=== PATIENT | male | born 1950 | race Caucasian/White ===

== ENCOUNTER 2018-12-18 19:11 | Emergency (ER) | payer MEDICARE, OTHER, SELFPAY ==
[2018-12-18 19:11] VITALS: BP 165/94; PULSE 84; RESP 18; TEMP 36.6; O2SAT 98; BMI 28.5
--- NOTE | 2018-12-18 23:15 | ED.VISSUMM ---
- ER Visit Summary Date of Service: 12/18/18 Chief Complaint: Facial laceration History of Present Illness: The patient is a 68 M who stepped on a branch. The branch struck him left side of the face/left maxillary region. He states he was not knocked out. He is not amnestic. He denies headache. He is on no anticoagulant. He is on aspirin. He denies bleeding from his nose. He denies displacement of his teeth. He states he is able to open and close his mouth completely. He denies neck pain. He denies paresthesia, anesthesia motor expressly the time of the injury. He has no antibiotic allergy. Immunization for tetanus is unknown. Physical Examination: Patient has a curvilinear circular laceration of the left maxillary area. There is no septal deviation hematoma. There is no hyperesthesia the infra orbital nerve. There is no step-off of the infra orbital rim. There is no evidence of entrapment. Pupils equal round reactive paradoxic muscle intact. Is no clinical signs of basal skull fracture. Trachea is midline. There is no TMJ tenderness. Is no evidence of dental injury. There is no pain the patient cervical spine he has full active range of motion. Heart is regular. Lungs are clear to auscultation. No other injuries are noted. He is alert and oriented x3 with a GCS of 15. Test Results: None were obtained Emergency Department Course and Treatment: Tetanus immunization. Received first dose of Augmentin in the emergency department. Laceration was repaired by Dr. Amilcar Haque. Patient's wound was anesthetized with 1% lidocaine. The wound was copiously irrigated. A wooden foreign body was removed. Since patient is diabetic and there was retained foreign body will place on 5-day course of Augmentin. Treatment Plan: Prescription for Augmentin and wound check in 2 days. Sutures out 5 days. Disposition: Discharged home in stable improved condition Impression: 1. Facial laceration 2.5 cm 2. Removal of wooden foreign body 3. History of type 2 diabetes This note was generated with [employer] dictation software. It may contain incorrect words, spelling, and punctuation that were not noted in review of the chart prior to signing ED Disposition - Plan for ED Patient: Disposition: Home or Assisted Living Instructions: ED Laceration Facial Sutr Tape, ED Foreign Body Soft Tissue Prescriptions: Amox/Clavulanate Tablet [Augmentin Tablet] 875 mg PO Q12H #10 tab Referrals: Bassam Brito MD [Primary Care Provider] - 2 Days for wound check Additional Instructions: If you are unable to be seen by Dr. Bassam Brito 2 days for wound check please return to the emergency department for wound check. Sutures out in 5 days. Take antibiotics until gone.
[2018-12-19] MEDS: Diphth,Pertuss(Acell),Tet Vac 0.5 ML Vial IM (00:07)
--- NOTE | 2018-12-19 00:14 | ED.RN ---
see downtime documentation
== END 2018-12-19 00:14 | disposition home or self-care (01) ==
PROVIDERS: Emergency Provider Emergency Medicine; Family Provider Family Medicine; PCP Family Medicine
DX: S01.422A Laceration with foreign body of left cheek and temporomandibular area, initial encounter (principal); E11.9 Type 2 diabetes mellitus without complications; Z23 Encounter for immunization; Z79.84 Long term (current) use of oral hypoglycemic drugs; Z79.82 Long term (current) use of aspirin; W20.8XXA Other cause of strike by thrown, projected or falling object, initial encounter; Y93.01 Activity, walking, marching and hiking; Y92.89 Other specified places as the place of occurrence of the external cause; Y99.8 Other external cause status
CPT/HCPCS: 12011; 90715; 99281

== ENCOUNTER 2018-12-21 03:19 | Emergency (ER) | payer MEDICARE, OTHER, SELFPAY ==
[2018-12-21 03:20] VITALS: BP 143/82; PULSE 97; RESP 16; TEMP 36.8; O2SAT 98; BMI 27.3
--- NOTE | 2018-12-21 03:20 | ED.RN ---
RN CALLED FOR EKG, PULLED OLD EKGS FOR
--- NOTE | 2018-12-21 03:35 | EKG12_ITS ---
Test Reason : Blood Pressure : / mmHG Vent. Rate : 094 BPM Atrial Rate : 094 BPM P-R Int : 224 ms QRS Dur : 104 ms QT Int : 346 ms P-R-T Axes : 067 091 041 degrees QTc Int : 432 ms Sinus rhythm with 1st degree A-V block Possible Left atrial enlargement Rightward axis Borderline ECG Confirmed by CESAR FITCH, CHRISTEN ([id number]), technical writer and editor ANGELIQUE BERRY ([id number]) on 12/24/2018 1:12:26 PM Referred By: KIESHA Confirmed By:CHRISTEN GUERRERO MD
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
[2018-12-21] MEDS: Ketorolac 15 MG/ML Vial IV (03:39)
[2018-12-21 04:01] LABS: Absolute Lymphocyte Count 0.85 X10^3/ul (0.83-4.51); Absolute Neutrophil Count 3.8 X10^3/uL (2.0-7.7); Basophil# 0.02 X10^3/uL; Basophil% 0.4 % (0-1); Eosinophils% 3.7 % (0-5); Hematocrit 43.6 % (40-54); Hemoglobin 14.8 g/dl (13.0-16.5); Lymphocyte # 0.85 X10^3/ul (4.0); Lymphocyte % 15.7 % (19-41); Mean Corp Hgb Conc 33.9 g/gl (32-36); Mean Corpuscular Hgb 30.5 pg (27.0-32.0); Mean Corpuscular Volume 89.7 fL (80-94); Mean Platelet Vol. 9.7 fl (6.2-12.0); Monocyte# 0.54 X10^3/uL; Neutrophil # 3.79 X10^3/uL (2.7-7.7); Neutrophil % 70.2 % (47-70); POSITIVE COUNT NO; POSITIVE DIFFERENTIAL NO; POSITIVE MORPHOLOGY NO; Platelet Count 198 K/mm3 (150-450); RBC Distribution Width CV 12.6 % (11.6-14.6); RBC Distribution Width SD 41.2 fl (35.1-43.9); Red Blood Count 4.86 M/mm3 (4.6-6.2); White Blood Count 5.4 K/mm3 (4.4-11.0)
[2018-12-21 04:11] LABS: Anion Gap 10 (5-15); BUN 13 mg/dL (7-18); BUN/Creat Ratio 13.9 RATIO (10-20); Calcium,Total 8.6 mg/dL (8.5-10.1); Chloride 102 mmol/L (98-107); Creatinine, Serum 0.93 mg/dL (0.70-1.30); EST Glomerular Filtration Rate 85 mL/min (>60); Est Glom Filt Rate - Afr Amer 103 mL/min (>60); Estimated Creatinine Clearance 78.49 ml/min; Glucose 228 mg/dL (74-106); Potassium 4.1 mmol/L (3.5-5.1); Sodium Level 138 mmol/L (136-145)
--- NOTE | 2018-12-21 04:17 | ED.DEP ---
ED Disposition - Plan for ED Patient: Disposition: Home or Assisted Living Instructions: ED Palpitations Referrals: Bassam Brito MD [Primary Care Provider] -
[2018-12-21 04:32] VITALS: BP 135/80; PULSE 74; RESP 17; O2SAT 95
== END 2018-12-21 04:33 | disposition home or self-care (01) ==
PROVIDERS: Emergency Provider Emergency Medicine; Family Provider Family Medicine; PCP Family Medicine
DX: R00.2 Palpitations (principal); E11.9 Type 2 diabetes mellitus without complications; Z79.84 Long term (current) use of oral hypoglycemic drugs; Z79.82 Long term (current) use of aspirin; Z79.2 Long term (current) use of antibiotics; J34.89 Other specified disorders of nose and nasal sinuses
CPT/HCPCS: 70160; 70200; 80048; 84484; 85025; 93005; 96374; 99285; A4216

== ENCOUNTER → 2018-12-21 13:31 | Outpatient (CLI) | payer MEDICARE, OTHER, SELFPAY ==
[2018-12-21 03:20] VITALS: BMI 27.3
--- NOTE | 2018-12-21 13:36 | RAD_ITS ---
STUDY: X-RAY - ORBITS REASON FOR EXAM: Male, 68 years old. This study is being performed as a clearance examination for exclusion of orbital metal, prior to the performance of an MRI examination. TECHNIQUE: 5 view(s) of the orbits were obtained. COMPARISON: None. FINDINGS: Normal bilateral orbits without a metallic orbital foreign body. Normal visualized facial bones. Normal paranasal sinuses. The soft tissue structures are unremarkable. RAD/Orbits Min 4 Views IMPRESSION: No demonstrated metallic orbital foreign body. The patient is cleared for an MRI examination. Electronically Signed: Shahid De La Fuente, at 14:39 EST , Service support ,
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
== END ==
PROVIDERS: Family Provider Family Medicine; PCP Family Medicine; Referring Provider Family Medicine; Visit Provider Family Medicine
DX: J34.89 Other specified disorders of nose and nasal sinuses (principal)
CPT/HCPCS: 70160; 70200

== ENCOUNTER 2018-12-22 18:41 | Emergency (ER) | payer MEDICARE, OTHER, SELFPAY ==
[2018-12-21 03:20] VITALS: BMI 27.3
[2018-12-22 18:42] VITALS: BP 127/72; PULSE 89; RESP 16; TEMP 36.4; O2SAT 93; BMI 27.2
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
--- NOTE | 2018-12-22 20:19 | ED.DEP ---
ED Disposition - Plan for ED Patient: Instructions: ED Concussion, ED Fx Nasal Conf W X Ray, Facial Fracture Referrals: Bassam Brito MD [Primary Care Provider] - Darius Varghese MD [STAFF PHYSICIAN] - 5-7 Days
[2018-12-22 20:26] VITALS: PULSE 73; RESP 16; O2SAT 98
== END 2018-12-22 20:30 | disposition home or self-care (01) ==
LOC: ED 19:03
PROVIDERS: Emergency Provider Emergency Medicine; Family Provider Family Medicine; PCP Family Medicine
DX: S02.2XXD Fracture of nasal bones, subsequent encounter for fracture with routine healing (principal); S02.40DD Maxillary fracture, left side, subsequent encounter for fracture with routine healing; F07.81 Postconcussional syndrome; Z79.2 Long term (current) use of antibiotics; E11.9 Type 2 diabetes mellitus without complications; Z79.84 Long term (current) use of oral hypoglycemic drugs; Z79.82 Long term (current) use of aspirin; W20.8XXD Other cause of strike by thrown, projected or falling object, subsequent encounter
CPT/HCPCS: 70450; 99282

== ENCOUNTER 2019-02-14 14:00 | Outpatient (RCR) | payer MEDICARE, OTHER, SELFPAY ==
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
--- NOTE | 2019-02-14 14:50 | HP.PTCOM ---
PT Communication Note 02/14/[address] TAINA HERNANDEZ , Thank you for the referral of Rodrigo to [facility] for balance testing. I have enclosed a copy of the results for your review. In summation, he score very well on all tests with slight exceptions. Forward weight shift excursion was slightly at deficit. Also, some latency in response on Motor Control test in the anterior ankle muscles is present adn consistent with his neuropathy. Based on these results, I have taught him an appropriate HEP and how to wean back to normal activities and he feels he can do these at home vs. more therapy visits. i will f/u with him in 3 weeks to ensure progress. Please do not hesitate to call if there are questions or concerns. Sincerely, Piter Cadena DPT, OCS, CSCS Contact Information
--- NOTE | 2019-02-14 14:53 | HP.PTCOM_ITS ---
PT Communication Note 02/14/[address] TAINA HERNANDEZ , Thank you for the referral of Rodrigo to [facility] for balance testing. I have enclosed a copy of the results for your review. In summation, he score very well on all tests with slight exceptions. Forward weight shift excursion was slightly at deficit. Also, some latency in response on Motor Control test in the anterior ankle muscles is present adn consistent with his neuropathy. Based on these results, I have taught him an appropriate HEP and how to wean back to normal activities and he feels he can do these at home vs. more therapy visits. i will f/u with him in 3 weeks to ensure progress. Please do not hesitate to call if there are questions or concerns. Sincerely, Piter Cadena DPT, OCS, CSCS Contact Information
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
== END 2019-02-14 19:00 | disposition home or self-care (01) ==
LOC: PT 14:00
PROVIDERS: Family Provider Family Medicine; PCP Family Medicine
DX: R26.2 Difficulty in walking, not elsewhere classified (principal)
CPT/HCPCS: 97162; 97165; 97166; 97750

== ENCOUNTER → 2019-07-29 | Outpatient (CLI) | payer MEDICARE, OTHER, SELFPAY ==
[2019-07-29 12:52] LABS: Anion Gap 9 (5-15); BUN 14 mg/dL (7-18); BUN/Creat Ratio 14.4 RATIO (10-20); Calcium,Total 8.9 mg/dL (8.5-10.1); Chloride 101 mmol/L (98-107); Creatinine, Serum 0.97 mg/dL (0.70-1.30); EST Glomerular Filtration Rate 81 mL/min (>60); Est Glom Filt Rate - Afr Amer 98 mL/min (>60); Glucose 213 mg/dL (74-106); Potassium 4.3 mmol/L (3.5-5.1); Sodium Level 138 mmol/L (136-145)
== END | disposition home or self-care (01) ==
LOC: BFHLAB 09:44
PROVIDERS: Family Provider Family Medicine; PCP Family Medicine; Visit Provider Family Medicine
DX: E11.65 Type 2 diabetes mellitus with hyperglycemia (principal); R94.6 Abnormal results of thyroid function studies
CPT/HCPCS: 36415; 80048; 84439; 84443

== ENCOUNTER → 2019-12-30 | Outpatient (CLI) | payer MEDICARE, OTHER, SELFPAY ==
[2019-12-30 15:35] LABS: Absolute Lymphocyte Count 1.45 X10^3/uL (0.83-4.51); Absolute Neutrophil Count 2.4 X10^3/uL (2.0-7.7); Basophil# 0.04 X10^3/uL; Basophil% 0.9 % (0-1); Eosinophil# 0.38 X10^3/uL; Eosinophils% 8.3 % (0-5); Hematocrit 45.3 % (40-54); Hemoglobin 14.7 g/dL (13.0-16.5); Lymphocyte # 1.45 X10^3/ul (4.0); Lymphocyte % 31.5 % (19-41); Mean Corp Hgb Conc 32.5 g/dL (32-36); Mean Corpuscular Hgb 29.9 pg (27.0-32.0); Mean Corpuscular Volume 92.1 fL (80-94); Mean Platelet Vol. 9.5 fl (6.2-12.0); Monocyte# 0.37 X10^3/uL; NRBC Flagged by Analyzer 0 % (0-5); Neutrophil # 2.36 X10^3/uL (2.7-7.7); Neutrophil % 51.3 % (47-70); Platelet Count 186 K/mm3 (150-450); RBC Distribution Width CV 12.7 % (11.6-14.6); RBC Distribution Width SD 43.4 fl (35.1-43.9); Red Blood Count 4.92 M/mm3 (4.6-6.2); White Blood Count 4.6 K/mm3 (4.4-11.0)
[2019-12-30 16:07] LABS: ALB/GLOB Ratio 1.3 RATIO (0.9-2.4); AST(SGOT) 15 U/L (15-37); Alanine Aminotransfer ALT/SGPT 23 U/L (16-61); Albumin, Serum 4.1 g/dL (3.2-5.0); Alkaline Phosphatase 60 U/L (45-117); Anion Gap 6 (5-15); BUN 14 mg/dL (7-18); BUN/Creat Ratio 14.3 RATIO (10-20); Calcium,Total 8.6 mg/dL (8.5-10.1); Chloride 101 mmol/L (98-107); Creatinine, Serum 0.98 mg/dL (0.70-1.30); EST Glomerular Filtration Rate 81 mL/min (>60); Est Glom Filt Rate - Afr Amer 98 mL/min (>60); Globulin 3.2 g/dL (2.2-4.2); Glucose 174 mg/dL (74-106); Protein, Total 7.3 g/dL (6.4-8.2); Sodium Level 138 mmol/L (136-145); Thyroid Stim Hormone (TSH) 3.41 uIU/mL (0.358-3.74)
[2019-12-30 16:15] LABS: Microalbumin,Random Urine 10.7 mg/L (NO RANGE EST.); Microalbumin:Creatinine Ratio 7.4 mg/g CRE (<30 mg/g CRE)
== END | disposition home or self-care (01) ==
PROVIDERS: PCP Family Medicine; Visit Provider Family Medicine
DX: E11.65 Type 2 diabetes mellitus with hyperglycemia (principal); R03.0 Elevated blood-pressure reading, without diagnosis of hypertension; E11.40 Type 2 diabetes mellitus with diabetic neuropathy, unspecified
CPT/HCPCS: 36415; 80053; 82043; 82570; 84443; 85025

== ENCOUNTER → 2020-02-28 | Outpatient (CLI) | payer MEDICARE, OTHER, SELFPAY ==
[2020-02-19 17:29] VITALS: BMI 27.2
--- NOTE | 2020-02-28 10:06 | VDLE_ITS ---
Reason For Study: Swelling, redness RIGHT LEFT GSV is normal. CFV is compressible, spontaneous, phasic, CFV is compressible, spontaneous, phasic, competent, and demonstrates normal competent and demonstrates normal augmentation. augmentation. FV is compressible, spontaneous, phasic, competent and demonstrates normal augmentation. POP V is compressible, spontaneous, phasic, competent and demonstrates normal augmentation. T/P Trunk is compressible. PTV is compressible. RT PerV is compressible. Procedure Exam performed in department. A preliminary report was called and/or faxed to Julio. Interpretation Summary Deep veins of the right lower extremity are patent and compressible segmentally. There is no evidence of right lower extremity deep vein thrombosis. Valvular competence appears intact within the proximal deep venous system on the right . The right great saphenous vein appears patent and compressible segmentally. Ordering Physician: Yesenia Kim Referring Physician: Bassam Brito Performed By: Jeimy Flynn RVT
== END | disposition home or self-care (01) ==
LOC: CVS 10:02
PROVIDERS: PCP Family Medicine; Referring Provider Family Medicine; Visit Provider Family Medicine
DX: M79.89 Other specified soft tissue disorders (principal)
CPT/HCPCS: 93971

== ENCOUNTER 2022-01-29 08:53 | Outpatient (CLI) | payer MEDICARE, OTHER, SELFPAY ==
--- NOTE | 2022-01-29 08:57 | US_ITS ---
STUDY: ABDOMINAL ULTRASOUND REASON FOR EXAM: Male, 71 years old. ABD PAIN TECHNIQUE: Transabdominal ultrasound was performed with real-time and static cole scale imaging. TECHNICAL QUALITY: Adequate. COMPARISON: None. FINDINGS: LIVER: Length 15.5 cm. Unremarkable. Portal vein patent. No biliary dilatation. GALLBLADDER Size: Distended. Stones: None. Wall thickness: Not thickened. 2 mm. Pericholecystic fluid: None. Sonographic Renteria sign: Negative. EXTRAHEPATIC BILE DUCTS: Common bile duct 4 mm not dilated. PANCREAS: Unremarkable. SPLEEN: Unremarkable. RIGHT KIDNEY: 10.8 cm length. No hydronephrosis. LEFT KIDNEY: 10.2 cm length. Limited parenchymal detail. No hydronephrosis. AORTA/IVC: Unremarkable. ASCITES: None. US/Abdomen Complete IMPRESSION: Unremarkable abdominal ultrasound examination. Electronically Signed: Diana Castro MD at 5:43 EDT ,
== END 2022-01-29 23:59 | disposition home or self-care (01) ==
LOC: US 08:54
PROVIDERS: PCP Family Medicine; Visit Provider Family Medicine
DX: R10.9 Unspecified abdominal pain (principal)
CPT/HCPCS: 76700

== ENCOUNTER → 2023-02-06 | Outpatient (CLI) | payer MEDICARE, OTHER, SELFPAY ==
[2023-02-06 10:28] LABS: Hemoglobin A1c 9.4 % (3.8-5.6)
[2023-02-06 10:37] LABS: ALB/GLOB Ratio 1.1 RATIO (0.9-2.4); AST(SGOT) 18 U/L (15-37); Alanine Aminotransfer ALT/SGPT 28 U/L (16-61); Albumin, Serum 3.7 g/dL (3.2-5.0); Alkaline Phosphatase 77 U/L (45-117); Anion Gap 2 (5-15); BUN 15 mg/dL (7-18); Chloride 104 mmol/L (98-107); Cholesterol 100 mg/dL (200); Creatinine, Serum 0.88 mg/dL (0.70-1.30); EST Glomerular Filtration Rate 90 mL/min (>60); Est Glom Filt Rate - Afr Amer 109 mL/min (>60); Globulin 3.3 g/dL (2.2-4.2); Glucose 123 mg/dL (74-106); High Density Lipoprotein 57 mg/dL; Sodium Level 137 mmol/L (136-145); Thyroid Stim Hormone (TSH) 5.86 uIU/mL (0.358-3.74); Triglycerides 52 mg/dL; Very Low Density Lipoprotein 10 mg/dL (5-40)
[2023-02-06 10:40] LABS: Microalbumin,Random Urine 6.1 mg/L (NO RANGE EST.); Microalbumin:Creatinine Ratio 6.6 mg/g CRE (<30 mg/g CRE)
== END | disposition home or self-care (01) ==
LOC: MTLAB 07:27
PROVIDERS: PCP Family Medicine; Referring Provider Nurse Practitioner Family; Visit Provider Nurse Practitioner Family
DX: E11.9 Type 2 diabetes mellitus without complications (principal)
CPT/HCPCS: 36415; 80053; 80061; 82043; 82570; 83036; 84443

== ENCOUNTER → 2024-02-23 | Outpatient (CLI) | payer MEDICARE, OTHER, SELFPAY ==
[2024-02-23 08:01] LABS: Vitamin D,25 Hydroxy 66.2 ng/mL
[2024-02-23 08:54] LABS: ALB/GLOB Ratio 1.2 RATIO (0.9-2.4); AST(SGOT) 19 U/L (15-37); Alanine Aminotransfer ALT/SGPT 22 U/L (16-61); Albumin, Serum 3.9 g/dL (3.2-5.0); Alkaline Phosphatase 69 U/L (45-117); Anion Gap 9 (5-15); BUN 20 mg/dL (7-18); BUN/Creat Ratio 22.6 RATIO (10-20); Chloride 102 mmol/L (98-107); Cholesterol 125 mg/dL (200); Creatinine, Serum 0.88 mg/dL (0.70-1.30); EST Glomerular Filtration Rate 90 mL/min (>60); Est Glom Filt Rate - Afr Amer 108 mL/min (>60); Globulin 3.3 g/dL (2.2-4.2); Glucose 133 mg/dL (74-106); High Density Lipoprotein 63 mg/dL; PSA,Total- Diagnostic 0.81 ng/mL (0.0-4.0); Potassium 4.3 mmol/L (3.5-5.1); Protein, Total 7.2 g/dL (6.4-8.2); Sodium Level 138 mmol/L (136-145); Triglycerides 67 mg/dL; Very Low Density Lipoprotein 13 mg/dL (5-40)
[2024-02-23 10:14] LABS: Microalbumin,Random Urine 6.3 mg/L (NO RANGE EST.); Microalbumin:Creatinine Ratio 6.8 mg/g CRE (<30 mg/g CRE)
[2024-02-24 04:08] LABS: Thyroid Peroxidase AB < 9 IU/mL (0-34)
== END | disposition home or self-care (01) ==
LOC: LAB 07:09
PROVIDERS: PCP Nurse Practitioner Family; Referring Provider Nurse Practitioner Family; Visit Provider Nurse Practitioner Family
DX: E11.9 Type 2 diabetes mellitus without complications (principal); E66.3 Overweight; R00.2 Palpitations; E55.9 Vitamin D deficiency, unspecified; R33.9 Retention of urine, unspecified
CPT/HCPCS: 36415; 80053; 80061; 82043; 82306; 82570; 84153; 84443; 86376

== ENCOUNTER 2024-08-13 20:09 | Emergency (ER) | payer MEDICARE, OTHER, SELFPAY ==
[2024-08-13 20:13] VITALS: BP 126/78; PULSE 73; RESP 18; TEMP 35.9; O2SAT 92; BMI 28.0
[2024-08-13 22:23] VITALS: BP 139/63; PULSE 68; RESP 15; O2SAT 96
--- OUTSIDE RECORDS SUMMARY | 2024-08-13 22:47 | XMS RPT_ITS | CCD ---
Author Organization [facility] Inform ion Partnership [facility] Care Team Providers Care Heel Blacker Name Role Phone Juanpablo Brito Primary Care Provider JUANPABLO BRITO Primary Care Unavailable [facility] Consulting U HERIBERTO Nieto Admitting Unavailable MONTY CAMPOS Attending Unavail able ULONI JACK Consulting Unavail able PEDRICK, TAINA LARSEN Consulting Unavai lable PEDTAINA VALLES Admitting Unavai lable BRIONNA CORONA Attending Unavailable TAINA HERNANDEZ Referring UnavaJUANPABLO Rodriguez Primary Care Unavailable PEDTAINA VALLES Admitting Unavai lable RINBRIONNA HUNTER Attending Unavailable TAINA HERNANDEZ Referring Unavai lable JUANPABLO BRITO Primary Care Unavailable Juanpablo Brito Primary Care Provider Allergies Allergy Classification Reported Allergen(s) Allergy Type Date of Onset Reaction(s) Facility (6 sources) diphenhydrAMINE; Translations: [DIPHENHYDRAMINE HCL] Drug Allergy 12-26-2018 Anxiety [facility] Medications Current Medications Medication Drug Class(es) Dates Sig (Normalized) Sig (Original) acetaminophen 325 mg oral tablet (2 sources) Start: 12-27-2018 End: 01-06-2019 take 2 tablets by mouth every six hours as needed acetaminophen (TYLENOL) 325 MG tablet Take 2 (two) tablets (650 mg total) by mouth every 6 (six) hours as needed . 30 tablet 0 12/27/2018 01/06/2019 Active Start: 12-26-2018 End: 12-27-2018 take 1 tablet by mouth every six hours as needed acetaminophen (TYLENOL) tablet 650 mg amitriptyline hydrochloride 25 mg oral tablet (5 sources) Tricyclic Antidepressant Start: 12-25-2018 End: 01-26-2019 take 1 tablet by mouth once daily amitriptyline (ELAVIL) 25 MG tablet Take 1 (one) tablet (25 mg total) by mouth nightly . 30 tablet 0 12/27/2018 Active metFORMIN hydrochloride 500 mg oral tablet (4 sources) Biguanide take 2 tablets by mouth twice daily metFORMIN (GLUCOPHAGE) 500 MG tablet Take 1,000 mg by mouth 2 (two) times a day . 0 Active naproxen 500 mg delayed release oral tablet (1 source) Nonsteroidal Anti-inflammatory Drug Start: 12-27-2018 End: 01-01-2019 take 1 tablet by mouth every twelve hours as needed naproxen (EC NAPROSYN) 500 MG EC tablet Take 1 (one) tablet (500 mg total) by mouth every 12 (twelve) hours as needed (headache) . 10 tablet 0 12/27/2018 01/01/2019 Active ondansetron 4 mg oral tablet (9 sources) Serotonin-3 Receptor Antagonist Start: 12-27-2018 End: 01-03-2019 take 1 tablet by mouth every twelve hours as needed ondansetron (ZOFRAN) 4 MG tablet Take 1 (one) tablet (4 mg total) by mouth every 12 (twelve) hours as needed for nausea . 10 tablet 0 12/27/2018 Active Start: 12-26-2018 End: 12-27-2018 take 4 mg intravenous route every six hours as needed 4 mg, Intravenous, Every 6 hours PRN, nausea, vomiting, Starting Mon12/26/18 at 0038 take 1 tablet by adis th every eight hours as needed ondansetron (ZOFRAN-ODT) 4 MG disintegrating tablet Dissolve 4 mg on top of tongue every 8 (eight) hours as needed for nausea . 0 Active Completed/Discontinued Medications Medication Drug Class(es) Dates Sig (Normalized) Sig (Original) acetaminophen 325 mg / oxyCODONE hydrochloride 5 mg oral tablet (2 sources) Opioid Agonist Start: 12-26-2018 End: 12-26-2018 oxyCODONE-acetamin ophen (PERCOCET) 5-325 mg per tablet 1 tablet Start: 12-26-2018 End: 12-26-2018 oxyCODONE-acetaminophen (PER COCET) 5-325 mg per tablet 1 tablet amoxicillin 875 mg / clavulanate 125 mg oral tablet (1 source) Penicillin-class Antibacterial Start: 12-19-2018 End: 12-27-2018 take 1 tablet by mouth twice daily amoxicillin-clavulanate (AUGMENTIN) 875-125 mg per tablet Take 1 tablet by mouth 2 (two) times a day . 0 12/19/2018 12/27/2018 Discontinued diphenhydrAMINE (1 source) Histamine-1 Receptor Antagonist Start: 12-25-2018 End: 12-25-2018 diphenhydrAMINE (BENADRYL) injection 50 mg docusate sodium 50 mg / sennosides, intermediate 8.6 mg oral tablet (1 source) Start: 12-27-2018 End: 12-27-2018 senna-docusate (SENNA-S) 8.6-50 mg per tablet 1 tablet glimepiride 2 mg oral tablet (5 sources) Sulfonylurea Start: 12-25-2018 End: 12-27-2018 take 4 mg by mouth twice daily at mealtime 4 mg, Oral, 2 times daily with meals, First dose on Mon12/25/18 at 2200 take 1 tablet by mouth twice carlos ly glimepiride (AMARYL) 4 MG tablet Take 4 mg by mouth 2 (two) times a day . 0 Active insulin lispro 100 unt/ml injectable solution (2 sources) Insulin Analog Start: 12-26-2018 End: 12-27-2018 inject 1 dose by subcutaneous injection three times daily before mealtime 0-30 Units, Subcutaneous, 3 times daily before meals, First dose on Mon12/26/18 at 0730 Dose should be given 10-15 minutes before a meal. If poor oral intake, nausea or blood glucose value < 80 before meal, give of the dose (rounded up to nearest unit) immediately after meal completed. If patient skipping meal, hold base prandial dose and continue to use corrective insulin as ordered. Once diet resumed, total base prandial + corrective doses may be given. Prandial Insulin Dosing Method: NO Prandial Dose - Corrective Scale ONLY Corrective Insulin Regimen (select desired scale to cover BG result): Insulin SENSITIVE Scale For Downtime Calculator, use: Insulin SC MEALtime PREprandial Start: 12-25-2018 End: 12-27-2018 inject 1 dose by subcutaneous injection once daily 0-15 Units, Subcutaneous, At bedtime, First dose on Mon12/25/18 at 2100 For Nightly Insulin Dose Coverage, use: CORRECTIVE (Only) for BG greater than 300 Nightly CORRECTIVE Dose Method: Specific Corrective Dose Nightly Specific CORRECTIVE dose (units of insulin): 2 For Downtime Calculator, use: Insulin SC NIGHTtime 1 ml ketorolac tromethamine 30 mg/ml injection (1 source) Nonsteroidal Anti-inflammatory Drug, Cyclooxygenase Inhibitor Start: 12-25-2018 End: 12-25-2018 ketorolac (TORADOL) injection 15 mg melatonin 5 mg oral tablet (1 source) Start: 12-25-2018 End: 12-27-2018 take 5 mg by mouth once daily 5 mg, Oral, Nightly, First dose on Mon12/25/18 at 2200 2 ml metoclopramide 5 mg/ml injection (1 source) Dopamine-2 Receptor Antagonist Start: 12-25-2018 End: 12-25-2018 metoclopramide (REGLAN) injection 10 mg naloxone (NARCAN) injection 0.1 mg (1 source) Start: 12-26-2018 End: 12-27-2018 naloxone (NARCAN) injection 0.1 mg SITagliptin 50 mg oral tablet (5 sources) Dipeptidyl Peptidase 4 Inhibitor Start: 12-26-2018 End: 12-27-2018 take 100 mg by mouth once daily 100 mg, Oral, Daily, First dose on Mon12/26/18 at 0900 take 1 tablet by mouth once mariann y sitagliptin (JANUVIA) 100 MG tablet Take 100 mg by mouth daily . 0 Active 1000 ml sodium chloride 9 mg/ml injection (2 sources) Start: 12-25-2018 End: 12-27-2018 take 100 mL intravenous route every hour 100 mL/hr, Intravenous, Continuous, Starting Mon12/25/18 at 1845 Problems Active Problems Problem Classification Problem Date Documented Date Episodic/Chronic Delirium dementia and amnestic and other cognitive disorders (4 sources) Postconcussion syndrome; Translations: [Postconcussional syndrome] Onset: 12-25-2018 Chronic Headache; including migraine (3 sources) Headache; Translations: [Headache] Onset: 12-25-2018 Episodic Intracranial injury (4 sources) Traumatic brain injury with loss of consciousness; Translations: [Unspecified intracranial injury with loss of consciousness of unspecified duration, subsequent encounter] Onset: 12-25-2018 Episodic Other nervous system disorders (1 source) Disorder of brain; Translations: [Acute encephalopathy] Chronic Other nervous system disorders (2 sources) Encephalopathy, unspecified; Translations: [Encephalopathy, unspecified] Onset: 12-25-2018 Chronic Other nervous system disorders (1 source) Abnormal gait; Translations: [Gait disturbance] Episodic Other nervous system disorders (2 sources) Unspecified abnormalities of gait and mobility; Translations: [Unspecified abnormalities of gait and mobility] Onset: 12-25-2018 Episodic Past or Other Problems Problem Classification Problem Date Documented Da te Episodic/Chronic Malaise and fatigue (5 sources) Asthenia; Translations: [Weakness] Onset: 12-25-2018 12-25-2018 Episodic Results Test Name Value Interpretation Reference Range Facility POC Glucoseon 12-27-2018 Glucose mass conc 174 mg/dL High 65 - 99 mg/dL [facility] Interpretation and review of laboratory results Abnormal [facility] Glucose mass conc 221 mg/dL High 65 - 99 mg/dL [facility] Interpretation and review of laboratory results Abnormal [facility] Glucose mass conc 170 mg/dL High 65 - 99 mg/dL [facility] Interpretation and review of laboratory results Abnormal [facility] Basic Metabolic Panelon Anion gap molar conc 14 mmol/L 10 - 20 mmol/L [facility] Calcium mass conc 8.0 mg/dL Low 8.4 - 10.2 mg/dL [facility] Chloride molar conc 98 mmol/L 98 - 108 mmol/L [facility] Creatinine mass conc 0.80 mg/dL 0.8 - 1 .3 mg/dL [facility] GFR/1.73 sq M predicted among non-blacks MDRD vol rate/area (S/P/Bld) The eGFR should be used for monitoring renal function only and not for medication dosing. [facility] GFR/1.73 sq M.predicted CKD-EPI vol rate/area (S/P/Bld) 92 >=60 mL/min/1.73 m2 [facility] Glucose mass conc 224 mg/dL High 65 - 99 mg/dL [facility] HCO3 molar conc 27 mmol/L 21 - 32 mmol/L [facility] ealt Interpretation and review of laboratory results Abnormal [facility] Potassium molar conc 4.0 mmol/L 3.5 - 5 .1 mmol/L [facility] Sodium molar conc 135 mmol/L 135 - 145 mmol/L [facility] Urea nitrogen mass conc 13 mg/dL 8 - 25 mg/dL [facility] Urea nitrogen/Creatinine mass ratio 16.3 mg/mg [facility] CT ANGIOGRAM HEAD NECKon Interface, Rad In [facility] Speechq - 12/26/2018 10:13 AM EST EXAMINATION: CT ANGIOGRAM HEAD NECK HISTORY: head injury 1 week ago, worsening headache, off balance Reason for exam?:head injury 1 week ago, worsening headache, off balance Injury/Trauma or Illness?:Injury/Traum a CONTRAST: IOPAMIDOL 76 % INTRAVENOUS SOLUTION - 75 mL, TECHNIQUE: Dose reduction techniques were achieved by using automated exposure control and/or adjustment of mA and/or kV according to patient size and/or use of iterative reconstruction technique. CT scan performed through brain without contrast and through the brain and neck with contrast. Examination reconstructed in the axial, coronal and sagittal planes. Examination reconstructed on an independent workstation with 3D rendered. The percent stenosis of the carotid arteries calculated using NASCET criteria. FINDINGS: [place]IG[place] OF [place] VESSELS: Heavy atherosclerotic calcification of the origin of the left subclavian artery with stenosis measuring approximately 33%. Remainder of the great vessels are normal. COMMON CAROTID ARTERIES: Normal. CAROTID BIFURCATIONS: Normal. CERVICAL CAROTID ARTERIES: Normal. VERTEBRAL ARTERIES: No evidence of stenosis. The vertebrobasilar junction is normal. [place]: No evidence of stenosis, occlusion. Probable infundibulum right supraclinoid carotid artery projecting posteriorly and measuring approximately 2 mm in greatest diameter. This is seen on image 41 of the sagittal reconstruction and image 277 of the axial study. Dural sinuses are patent. Soft tissues of the neck are normal. Lung apices are clear. Osseous structures are intact. IMPRESSION: 1. 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 2. No evidence of carotid bifurcation stenosis. 3. Normal examination vertebrobasilar circulation. 4. Likely infundibulum supraclinoid carotid artery to the right of midline measuring 2 mm in diameter. [employer] Workstation ID: [id number] [facility] 1. 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 2. No evidence of carotid bifurcation stenosis. 3. Normal examination vertebrobasilar circulation. 4. Likely infundibulum supraclinoid carotid artery to the right of midline measuring 2 mm in diameter. [employer] Workstation ID: [id number] [facility] EXAMINATION: CT ANGIOGRAM HEAD NECK HISTORY: head injury 1 week ago, worsening headache, off balance Reason for exam?:head injury 1 week ago, worsening headache, off balance Injury/Trauma or Illness?:Injury/Traum a CONTRAST: IOPAMIDOL 76 % INTRAVENOUS SOLUTION - 75 mL, TECHNIQUE: Dose reduction techniques were achieved by using automated exposure control and/or adjustment of mA and/or kV according to patient size and/or use of iterative reconstruction technique. CT scan performed through brain without contrast and through the brain and neck with contrast. Examination reconstructed in the axial, coronal and sagittal planes. Examination reconstructed on an independent workstation with 3D rendered. The percent stenosis of the carotid arteries calculated using NASCET criteria. FINDINGS: [place]IGIN OF [place]: Heavy atherosclerotic calcification of the origin of the left subclavian artery with stenosis measuring approximately 33%. Remainder of the great vessels are normal. COMMON CAROTID ARTERIES: Normal. CAROTID BIFURCATIONS: Normal. CERVICAL CAROTID ARTERIES: Normal. VERTEBRAL ARTERIES: No evidence of stenosis. The vertebrobasilar junction is normal. [place]: No evidence of stenosis, occlusion. Probable infundibulum right supraclinoid carotid artery projecting posteriorly and measuring approximately 2 mm in greatest diameter. This is seen on image 41 of the sagittal reconstruction and image 277 of the axial study. Dural sinuses are patent. Soft tissues of the neck are normal. Lung apices are clear. Osseous structures are intact. [facility] Hemoglobin A1con 12-26-2018 Average glucose Estimated from glycated hemoglobin mass conc (Bld) 232 mg/dL High 74 - 114 mg/dL [facility] Hemoglobin A1c/Hemoglobin.total mass fraction (Bld) 9.7 % High 4.2 - 5.6 % [facility] Comment on above: Normal: 4.2% - 5.6% Increased risk for diabetes: 5.7% - 6.4% Diabetes: >= 6.5% Pediatrics: No established reference range Estimated average glucose: 74-114 mg/dL Please note: Reference intervals were changed as of 11/29/2018 to align with current [place] [employer] guidelines Interpretation and review of laboratory results Abnormal [facility] MR BRAIN WITHOUT CONTRASTon 12-26-2018 No acute infarct, mass effect, or midline shift. Mild diffuse brain parenchymal atrophy, with disproportionate ventriculomegaly, grossly unchanged. An underlying component of communicating hydrocephalus cannot be excluded. Workstation ID: [id number] [facility] EXAMINATION: MR MARIO ALBERTO Chaney WITHOUT CONTRAST HISTORY: Dx: S06.9X9D (Traumatic brain injury with loss of consciousness, subsequent encounter) Post concussive syndrome COMPARISON: Prior CTA head and neck dated 12/25/2018 TECHNIQUE: A variety of MR imaging pulse sequences were performed in the sagittal, axial and coronal planes for evaluation of the brain. FINDINGS: Mild diffuse brain parenchymal atrophy, with disproportionate ventriculomegaly, grossly unchanged. There is no midline shift or evidence for mass effect. There is no evidence for acute intracranial hemorrhage or acute territorial infarction. No intra-axial or extra-axial fluid collections are present. The cerebellar tonsils are positioned above the foramen magnum. Normal flow void is present in the carotid and basilar vessels. The visualized paranasal sinuses appear normal. The mastoid air cells are normally aerated. Visualized orbital structures are unremarkable. [facility], Rad In [facility] Speechq - 12/26/2018 7:00 AM EST EXAMINATION: MR BRAIN WITHOUT CONTRAST HISTORY: Dx: S06.9X9D (Traumatic brain injury with loss of consciousness, subsequent encounter) Post concussive syndrome COMPARISON: Prior CTA head and neck dated 12/25/2018 TECHNIQUE: A variety of MR imaging pulse sequences were performed in the sagittal, axial and coronal planes for evaluation of the brain. FINDINGS: Mild diffuse brain parenchymal atrophy, with disproportionate ventriculomegaly, grossly unchanged. There is no midline shift or evidence for mass effect. There is no evidence for acute intracranial hemorrhage or acute territorial infarction. No intra-axial or extra-axial fluid collections are present. The cerebellar tonsils are positioned above the foramen magnum. Normal flow void is present in the carotid and basilar vessels. The visualized paranasal sinuses appear normal. The mastoid air cells are normally aerated. Visualized orbital structures are unremarkable. IMPRESSION: No acute infarct, mass effect, or midline shift. Mild diffuse brain parenchymal atrophy, with disproportionate ventriculomegaly, grossly unchanged. An underlying component of communicating hydrocephalus cannot be excluded. Workstation ID: [id number] [facility] POC Glucoseon 12-26-2018 Glucose mass conc 251 mg/dL High 65 - 99 mg/dL [facility] Interpretation and review of laboratory results Abnormal [facility] Glucose mass conc 149 mg/dL High 65 - 99 mg/dL [facility] Interpretation and review of laboratory results Abnormal [facility] Glucose mass conc 204 mg/dL High 65 - 99 mg/dL [facility] Interpretation and review of laboratory results Abnormal [facility] Glucose mass conc 204 mg/dL High 65 - 99 mg/dL [facility] Interpretation and review of laboratory results Abnormal [facility] BMPon 12-25-2018 Anion gap molar conc 20 mmol/L 10 - 20 mmol/L [facility] Calcium mass conc 9.3 mg/dL 8.4 - 10.2 mg/dL [facility] Chloride molar conc 93 mmol/L Low 98 - 108 mmol/L [facility] Creatinine mass conc 0.88 mg/dL 0.8 - 1 .3 mg/dL [facility] GFR/1.73 sq M predicted among non-blacks MDRD vol rate/area (S/P/Bld) The eGFR should be used for monitoring renal function only and not for medication dosing. [facility] GFR/1.73 sq M.predicted CKD-EPI vol rate/area (S/P/Bld) 88 >=60 mL/min/1.73 m2 [facility] GFR/1.73 sq M.predicted CKD-EPI vol rate/area (S/P/Bld) 102 >=60 mL/min/1.73 m2 [facility] Glucose mass conc 266 mg/dL High 65 - 99 mg/dL [facility] HCO3 molar conc 28 mmol/L 21 - 32 mmol/L [facility] Interpretation and review of laboratory results Abnormal [facility] Potassium molar conc 4.8 mmol/L 3.5 - 5 .1 mmol/L [facility] Sodium molar conc 136 mmol/L 135 - 145 mmol/L [facility] Urea nitrogen mass conc 12 mg/dL 8 - 25 mg/dL [facility] Urea nitrogen/Creatinine mass ratio 13.6 mg/mg [facility] CBC WITH AUTO DIFFERENTIALon 12-25-2018 Erythrocyte distribution width Entitic volume (RBC) 12.2 % 11.6 - 14.8 % [facility] Hematocrit Volume Fraction (Bld) 47.7 % 41 - 53 % [facility] Hemoglobin mass conc (Bld) 15.8 g/dL 13.5 - 17.5 g/dL [facility] MCH Entitic mass (RBC) 29.8 pg 26 - 34 pg [facility] MCHC mass conc (RBC) 33.1 g/dL 31 - 37 g/dL [facility] MCV Entitic volume (RBC) 89.8 fL 80 - 100 fL [facility] Nucleated RBC #/vol (Bld) 0.00 10*3/uL [facility] Nucleated RBC/100 WBC Ratio (Bld) 0.0 % [facility] Platelet mean volume Entitic volume (Bld) 9.0 fL 9 - 15.5 fL [facility] Platelets #/vol (Bld) 220 10*3/uL [facility] RBC #/vol (Bld) 5.31 10*6/uL [facility] WBC #/vol (Bld) 5.49 10*3/uL [facility] CRP, Inflammationon 12-26-19 19 CRP mass conc 1.5 mg/L 0 - 10 mg/L [facility] Interpretation and review of laboratory results Normal [facility] CT ANGIOGRAM HEAD NECKon CT ANGIOGRAM HEAD NECK EXAMINATION: CT ANGIOGRAM HEAD NECK HISTORY: head injury 1 week ago, worsening headache, off balance Reason for exam?:head injury 1 week ago, worsening headache, off balance Injury/Trauma or Illness?:Injury/Traum a CONTRAST: IOPAMIDOL 76 % INTRAVENOUS SOLUTION - 75 mL, TECHNIQUE: Dose reduction techniques were achieved by using automated exposure control and/or adjustment of mA and/or kV according to patient size and/or use of iterative reconstruction technique. CT scan performed through brain without contrast and through the brain and neck with contrast. Examination reconstructed in the axial, coronal and sagittal planes. Examination reconstructed on an independent workstation with 3D rendered. The percent stenosis of the carotid arteries calculated using NASCET criteria. FINDINGS: [place]: Heavy atherosclerotic calcification of the origin of the left subclavian artery with stenosis measuring approximately 33%. Remainder of the great vessels are normal. COMMON CAROTID ARTERIES: Normal. CAROTID BIFURCATIONS: Normal. CERVICAL CAROTID ARTERIES: Normal. VERTEBRAL ARTERIES: No evidence of stenosis. The vertebrobasilar junction is normal. [place]: No evidence of stenosis, occlusion. Probable infundibulum right supraclinoid carotid artery projecting posteriorly and measuring approximately 2 mm in greatest diameter. This is seen on image 41 of the sagittal reconstruction and image 277 of the axial study. Dural sinuses are patent. Soft tissues of the neck are normal. Lung apices are clear. Osseous structures are intact. IMPRESSION: 1. 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 2. No evidence of carotid bifurcation stenosis. 3. Normal examination vertebrobasilar circulation. 4. Likely infundibulum supraclinoid carotid artery to the right of midline measuring 2 mm in diameter. [facility] Workstation ID: [id number] Dictated by: Bennett HERBERT on MonDec 25, 2018 3:43:13 PM EST Transcribed by: VIKKI BECERRA on MonDec 25, 2018 3:52:01 PM EST Finalized by: Bennett HERBERT on MonDec 26, 2018 10:10:57 AM EST [facility] Comment on above: Order Comment: Reaso n for exam?:head injury 1 week ago, worsening headache, offbalance Injury/Trauma or Illness?:Injury/Trauma How long have you had these symptoms (acute/chronic)?:Acute Type of Exam?:Initial Mechanism of injury?:got hit with a tree branch in eye MORPHOLOGYon 12-25-2018 Platelets LM Ql (Bld) Normal Normal [facility] RBC morphology finding Nom (Bld) Normal [facility] MR BRAIN WITHOUT CONTRASTon 12-25-2018 MR BRAIN WITHOUT CONTRAST EXAMINATION: MR BRAIN WITHOUT CONTRAST HISTORY: Dx: S06.9X9D (Traumatic brain injury with loss of consciousness, subsequent encounter) Post concussive syndrome COMPARISON: Prior CTA head and neck dated 12/25/2018 TECHNIQUE: A variety of MR imaging pulse sequences were performed in the sagittal, axial and coronal planes for evaluation of the brain. FINDINGS: Mild diffuse brain parenchymal atrophy, with disproportionate ventriculomegaly, grossly unchanged. There is no midline shift or evidence for mass effect. There is no evidence for acute intracranial hemorrhage or acute territorial infarction. No intra-axial or extra-axial fluid collections are present. The cerebellar tonsils are positioned above the foramen magnum. Normal flow void is present in the carotid and basilar vessels. The visualized paranasal sinuses appear normal. The mastoid air cells are normally aerated. Visualized orbital structures are unremarkable. IMPRESSION: No acute infarct, mass effect, or midline shift. Mild diffuse brain parenchymal atrophy, with disproportionate ventriculomegaly, grossly unchanged. An underlying component of communicating hydrocephalus cannot be excluded. Workstation ID: [id number] Dictated by: SAMMY TAYLOR on MonDec 26, 2018 6:57:36 AM EST Transcribed by: SAMMY TAYLOR on MonDec 26, 2018 6:57:36 AM EST Finalized by: SAMMY TAYLOR on MonDec 26, 2018 6:57:36 AM EST Normal [facility] Comment on above: Order Comment: Reaso n for exam?:intractable headache, trouble with balance, recent history of fall/injury on December 18 Injury/Trauma or Illness?:Illness/Other How long have you had these symptoms (acute/chronic)?:Unknown Type of Exam?:Unknown Additional signs and symptoms?:intractable headache, trouble with balance, recent history of fall/injury on December 18 Manual Differentialon 2018 Basophils #/vol (Bld) 0.05 10*3/uL [facility] Basophils/100 WBC (Bld) 1.0 % [facility] Eosinophils #/vol (Bld) 0.00 10*3/uL [facility] Eosinophils/100 WBC (Bld) 0.0 % [facility] Interpretation and review of laboratory results Abnormal [facility] Lymphocytes #/vol (Bld) 1.26 10*3/uL [facility] Lymphocytes/100 WBC (Bld) 18.0 % [facility] Monocytes #/vol (Bld) 0.22 10*3/uL Low [facility] Monocytes/100 WBC (Bld) 4.0 % [facility] Neutrophils #/vol (Bld) 3.95 10*3/uL [facility] Neutrophils/100 WBC (Bld) 72.0 % [facility] Variant lymphocytes/100 WBC (Bld) 5.0 % [facility] Metabolic Panelon 12-25-2018 Glucose mass conc 218 mg/dL Abnormal 65 - 99 mg/dL [facility] Otheron 12-25-2018 Interpretation and review of laboratory results Abnormal [facility] Extra Tube Hold for add-ons. [facility] Comment on above: Auto resulted. POC Glucoseon 12-25-2018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 ASSESSMENT AND PLAN Intractable headache - Ongoing, intermittent since recent fall/injury on December 18, family reports overall poor oral intake, poor sleep, and noted issues with balance, head and hand shaking. - Etiology suspected related to postconcussive syndrome. - Upon arrival given headache cocktail, initially was having trouble giving details, however at the time of my evaluation he was awake, oriented with no focal neurological deficits, rating his headache at 5-6 out of 10. - CTA head with 33% stenosis at the origin of left subclavian artery, no carotid stenosis, normal vertebral basilar circulation. - Will initiate amitriptyline 25 mg nightly, involve neurology, check MRI of the brain, order written for headache cocktail with Depakote, IV Toradol and magnesium. Hydrate. Recent fall - He reports after the wind [place] on December 18, he was cleaning up his back yard, breaking the torn tree branches when a portion of tree branch flew over and hit him on his facial area causing him to fall, he reports that he might have passed out for a little bit with that impact. - Since that accident he had been having intermittent headaches as above, also noted him to be off balance today with his head and hand shaking. - He underwent CT head this past Monday at [facility] and was noted to have small fracture in his upper jaw, subsequently had seen ENT on Monday and was told that he does not need any surgical intervention for that. Type 2 diabetes uncontrolled - Reports his last A1c was in the 10 range, not on insulin, takes glimepiride 4 mg twice daily, metformin along with Januvia. - Cover with sliding scale insulin, continue with glimepiride and Januvia while in-house. - Holding metformin for now. 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 In addition family noted him to be off balance, with his head and hand shaking that prompted them to bring him to the hospital. History obtained by talking to the patient's , who is present at bedside, he was cleaning his backyard after Wind strorm on December 18 breaking up torn tree branches. He tried to break a big branch with his legs, when a piece of it, flew over and hit him in the face causing him to fell, he reports that he likely had passed out from the impact of it. He was bleeding from his face when he regained consciousness, was able to get up clean his face, drove to the local ED where he got 10 stitches placed. He was discharged back home the same night. Since that time he had been having intermittent headaches for which he had been taking ibuprofen, reports that he had never missed work however because of these headaches he had been missing work. His appetite is poor and he has not been eating well. They had been to the local ED few times with last one being this past Monday when he underwent CT head which did not show any intracranial pathology but did reveal upper jaw fracture for which he was told to follow-up with an ENT. He did see the ENT this past Monday and told that he does not require any surgical intervention. He is finishing up a course of amoxicillin that was placed after his facial injury. Today the noted that his balance was off set, he almost fell, she also noted that his head and hand was shaking. He reports his headache was intractable earlier. He denies any drainage of fluid from his nose or ears, reports that he is spending more most of his days sitting in a dark room, sleeping on and off related to his headache. He was slow to respond to questions in ED, given headache cocktail and by the time I saw him he was doing much better. ROS: > > > > > > > > > > The following system(s) were reviewed. Pertinent positive and negative findings are noted in the HPI. [x] Const [x] Eyes [x] ENT [x] Resp [x] CV [x] GI [x] [x] Neuro [x] Musc [x] Skin [x] Psych [x] Endo [] Allergy [] Heme/Lymph PMH/PSH/SH/FH: Past Medical History: Diagnosis Date Diabetes mellitus (HCC) Past Surgical History: Procedure Laterality Date CARDIAC CATHETERIZATION History reviewed. No pertinent family history. Social History Socioeconomic History Marital status: Spouse name: Not on file Number of children: Not on file Years of education: Not on file Highest education level: Not on file Social Needs Financial resource strain: Not on file Food insecurity - worry: Not on file Food insecurity - inability: Not on file Transportation needs - medical: Not on file Transportation needs - non-medical: Not on file Occupational History Not on file Tobacco Use Smoking status: Never Smoker Smokeless tobacco: Never Used Substance and Sexual Activity Alcohol use: Yes Comment: rare Drug use: Never Sexual activity: Not on file Other Topics Concern Not on file Social History Narrative Not on file Allergy Information:I have reviewed the patient's allergies. Patient has no known allergies. Home Medications: Outpatient Medications Marked as Taking for the 12/25/18 encounter (Hospital Encounter) Medication Sig amoxicillin-clavulanate (AUGMENTIN) 875-125 mg per tablet Take 1 tablet by mouth 2 (two) times a day . glimepiride (AMARYL) 4 MG tablet Take 4 mg by mouth 2 (two) times a day . metFORMIN (GLUCOPHAGE) 500 MG tablet Take 1,000 mg by mouth 2 (two) times a day . ondansetron (ZOFRAN-ODT) 4 MG disintegrating tablet Dissolve 4 mg on top of tongue every 8 (eight) hours as needed for nausea . sitagliptin (JANUVIA) 100 MG tablet Take 100 mg by mouth daily . PHYSICAL EXAMINATION > > > > > > > > Vital Signs: Temp: [99.9 F (37.7 C)] 99.9 F (37.7 C) Heart Rate: [81-94] 81 Resp: [16] 16 BP: (123-161)/(74-82) 144/76 GENERAL: NAD, left sided facial ecchymosis EYES: Conjunctiva and sclera clear, EOMI, PERRL ENT: Hearing intact. Pharynx clear. NECK: No adenopathy or thyromegaly. CV: RRR, no murmur. No JVD. No edema. RESP: CTA bilaterally, no distress. GI: Non-distended, +BS, soft, non-tender. No guarding, masses or rebound MUSC: Normal ROM without deformity. SKIN: Warm and dry. No rashes. NEURO: Alert, Ox3. Grossly normal motor and sensory exam. No focal deficits. PSYCH: Mood and affect are appropriate. Cooperative. Laboratory and Additional Data Acquired or Reviewed: [x] Laboratory [x] Transcriptions [x] Radiology [] Microbiology [x] Cardiology [] Outside Records [x] Medications [] Family Time Spent: in this encounter Elana Mullen, WOOD CAR BUILDER - 12/27/2018 3:34 PM Hina Herron LSW - 12/27/2018 3:04 PM Ashwini Gusman PT - 12/27/2018 1:17 PM Violeta Riggs MD - 12/26/2018 11:17 AM EST Consult Notes (unrecognized section and content) Speech Pathology Communication / Cognition Eval Note Discharge Recommendations: Factors for Returning to Prior Level of Function Body Structure and Function: Neurologic impairment Explain Impairments: post-concussive syndrome Activities and Participation: Executive function limitation Explain Limitations: cognitive linguistic deficits Skilled Therapy Needs: Are Skilled Therapy Services Needed After Discharge: Yes Intensity of Skilled Therapy: 2-3 days per week Anticipated Duration of Skilled Therapy: Duration 10 - 30 days Impressions: Oral/Motor: Oral Motor Impression-Severity Scale: WFL Auditory Comprehension: Auditory Comp Impression-Severity Scale: Mild Commands: Within Functional Limits Interfering Components: Processing speed EffectiveTechniques: Extra processing time Visual Recognition: Visual Recognition Impression-Severity: WFL Reading Comprehension: Reading Comp Impression-Severity: (not assessed) Expression: Expression Impression-Severity: WFL Primary Mode of Expression: Verbal Verbal Expression: Verbal Expression Impression-Severity: WFL Initiation: No impairment Repetition: No impairment Written Expression: Written Expression Impression-Severity: (not assessed) Speech Cognition: Oriented X4 Speech Cognition Impression-Severity: Mild Attention: Exceptions to WFL Sustained Attention: Moderate Planning: Reduced planning skills Processing Speed: Min delay Patient O-Log(Orientation Log) completed. Score: Patient Cog-Log (Cognitive Log) score: . Cut off score: 25 or better. Pt w/ mild cognitive linguistic deficits most prominent in delayed recall and processing. Pt is symptomatic for post-concussive syndrome. Pt is easily overwhelmed w/ information. Education provided regarding post-concussive care. Recommend follow up w/ Speech Therapy for management. No further needs while inpatient. 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 Pt recalled at least 3 symptoms. Pt and family verbalized understanding. For complete objective data, detailed plan of care, and education refer to: Speech Comm/Cog Eval flow sheet, as well as patient Plan of Care and Education documentation. This note stands as the current Discharge Summary upon patient discharge from the hospital or completion of Speech Pathology Plan of Care Associated Order(s): IP CONSULT TO CARE MANAGEMENT COMPLEX DISCHARGE Date: 12/27/2018 Time: 3:04 PM Patient Name: Rodrigo Henley Date of : 1950 Sex: Male PT/OT/ST rec 2-3 OP therapy, pt agreeable. OP therapy orders placed, script printed and placed in pt's chart. AVS updated. Bedside RN updated. Discharge Plan Shared UM/CC and RN Source of Information: Patient Contact Phone Number: Sydni, [phone]; Lillie Henley, [phone]. Living Arrangements: Spouse/significant other Support Systems: Spouse/significant other, Children(all 3 children live in [place].) Functional Status: Independent Type of Residence: Private residence, Multi-level (stairs)(Lives in a 2 story home in [place].) Prior to Admission Home Care Services: No Current Home Equipment: Glucometer Insurance Coverage for Prescriptions: Yes Anticipated Discharge Plan Anticipated HME: Undetermined Anticipated Home Care Needs: Undetermined(Therapy pending.) Potential for Readmission Potential for Readmission: No Discharge Readiness Expected Discharge Date: 12/27/18 [facility] Disposition D/C Disposition: Home Agency/Destination: Home Home Care Needs : Outpatient rehab HME: None Community/Outpatient Referral: Outpatient rehab Same As Recommended : yes Transportation Type: Auto Options Reviewed: List provided, Possible expense, Explained services/benefits Reason for Choice: Patient/Family prefernce Physical Therapy PHYSICAL THERAPY EVALUATION NOTE Skilled Therapy Needs After Discharge Anticipate Resolution of Current Assessment Limitations Including: Pain Are Skilled Therapy Services Needed After Discharge: Yes Intensity of Skilled Therapy: 2-3 days per week(neuro outpatient PT) Anticipated Duration of Skilled Therapy: Duration 10 - 30 days DME Recommendation: None Rehab Potential: Good, For goals Outcomes Measures Prior Function - Basic Mobility Raw Score: 24 Points Prior Function - Basic Mobility % Impaired: 0% functionally impaired AM-PAC - Basic Mobility Raw Score: 20 Points AM-PAC - Basic Mobility % Impaired: 33.32% functionally impaired Physical Therapy Assessment History: The following factors influence the patient's participation in the PT plan of care: Personal factors: limited baseline mobility, decreased insight and recently limited mobility after concussion Environmental factors: multi-level home, bedroom/bathroom on 2nd floor and steps to enter home The following co-morbidities (from this admission or prior) influence the patient's participation in this plan of care: concussion a week ago with subsequent post concussive symptoms, decreased balance, weakness, confusion. Number of History elements affecting this patient's PT plan of care: 3 or more Examination of Body Systems: The patient presents with impairments of strength, pain, functional endurance, coordination, balance, pain, cognition. These impairments result in limitations of gait, functional transfers, stair-climbing, safety, safety awareness, activity tolerance and insight. These impairments result in restrictions of household mobility, community mobility, work-related activities and leisure activities. Number of Body Systems elements affecting this patient's PT plan of care: 4 or more Clinical Presentation: The patient's clinical presentation for this PT evaluation is unstable as evidenced by current PT documentation. Activity Tolerance Activity Tolerance: Tolerates 10 - 20 min activity with multiple rests Therapy Precautions Orthotic Devices: No Weight Bearing Status: WFL General Rehab Precautions: Fall risk Bed Mobility Supine to Sit: Modified independence(extra time/effort) Skilled Intervention: safe technique but with extra effort beyond baseline Transfers Sit to Stand: Stand by assistance Lcac Radar Operator/Navigator: 1 person, Gait belt Gait/Locomotion Gait Assistance: Contact guard, Stand by assistance Assistive Device: None Distance: 500 Feet Pattern: R decreased step length, L decreased step length, Step through(functional but slowed velocity, mildly unsteady, hesitant) Home Living Type of Home: House Home Layout: Two level Bathroom Shower/Tub: Tub/shower unit Bathroom Toilet: Standard Prior Level of Function Level of 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 This note stands as the current Discharge Summary upon patient discharge from the hospital or completion of Physical Therapy Plan of Care. Associated Order(s): IP CONSULT TO PHYSICAL MEDICINE REHAB [facility] Department of Physical Medicine & Rehabilitation Consult Note Patient Name: Rodrigo Henley Admit Date: 3041031 : 1950 MR #: [id number] Attending Physician: [facility]* Physicians: Juanpablo Brito MD (Family); No ref. provider found (Referring) Chief Complaint Intractable GROSS Assessment & Plan Rodrigo Henley is a 68 y.o. male with PMH of DM HgA1c 9.7 admitted on 12/25/2018 who presents with post concussive syndrome Post Concussive syndrome: -completed discussion of concussion symptoms, course and prognosis with patient , and daughter - can follow up with Dr. Hernandez as outpatient if symptoms persist Final plan per attending physician, Dr. Hernandez Thank you for the consult. History of Present Illness Reason for Consult: eval for rehabilitation needs re: post concussive syndrome Rodrigo Henley is a 68 y.o. male with PMH of non insuline dependent DM HgA1c 9.7 admitted on 12/25/2018 who presents with intractable GROSS secondary to post concussive syndrome. Rodrigo Henley was cutting branches at home (dec.18) when one branch hit him in his face. He endorses + LOC. He was monitored at ED then discharged home. He had two episodes of vomiting bile. He continued to have persistent GROSS at home that are sharp and stabbing with no specific location, can be the posterior front or top of head. Took OTC tylenol and ibuprofen which did not help. Meds given while admitted have helped with GROSS. He continues to endorse difficulty concentrating, fatigue. Has avoided screen time and light due to sensitivity and precautions. Endorses dysequilibrium. One prior head trauma at 6 and about 15 years ago, nether had + LOC with no GROSS. Review of Systems General: no fever or chills HEENT: no sore throat or congestion Eyes: no blurry or double vision Cardiac: no chest pain or palpitations Resp: no dyspnea or cough GI: no abdominal pain or nausea, + decreased appetite MSK: +cervicalgia Neuro:+ GROSS, + difficulty concentrating with decreased attention, +short term memory difficulties Psych: no depression or anxiety Skin: no new rashes or lesions : no dysuria or incontinence Past Medical History I have reviewed the patient's past medical, surgical, and family history. Past Medical History: Diagnosis Date Diabetes mellitus (HCC) Allergies I have reviewed the patient's allergies. Allergies Allergen Reactions Benadryl [Diphenhydramine Hcl] Anxiety Patient with severe confusion and disorientation after benadryl Past Surgical History Past Surgical History: Procedure Laterality Date CARDIAC CATHETERIZATION Family History History reviewed. No pertinent family history. Social History Social History Socioeconomic History Marital status: Spouse name: Not on file Number of children: Not on file Years of education: Not on file Highest education level: Not on file Social Needs Financial resource strain: Not on file Food insecurity - worry: Not on file Food insecurity - inability: Not on file Transportation needs - medical: Not on file Transportation needs - non-medical: Not on file Occupational History Not on file Tobacco Use Smoking status: Never Smoker Smokeless tobacco: Never Used Substance and Sexual Activity Alcohol use: Yes Comment: rare Drug use: Never Sexual activity: Not on file Other Topics Concern Not on file Social History Narrative Not on file Support System: lives with Functional History Premorbid level of function: independent, no assistive devices required, driving previously Current level of function per therapy evaluations: reviewed in EMR ROM restrictions, WB restrictions, & precautions: fall precautions Medications Home Meds: Rodrigo Henley Home Medication Instructions Prior to Surgery ALLAN:[id number] Printed on:12/26/18 7277 Medication Information Take last dose on Take the morning of surgery Comment(s) amoxicillin-clavulanate (AUGMENTIN) 875-125 mg per tablet Take 1 tablet by mouth 2 (two) times a day . glimepiride (AMARYL) 4 MG tablet Take 4 mg by mouth 2 (two) times a day . metFORMIN (GLUCOPHAGE) 500 MG tablet Take 1,000 mg by mouth 2 (two) times a day . ondansetron (ZOFRAN-ODT) 4 MG disintegrating tablet Dissolve 4 mg on top of tongue every 8 (eight) hours as needed for nausea . sitagliptin (JANUVIA) 100 MG tablet Take 100 mg by mouth daily . Physical Exam BP 125/73 (BP Location: Right arm, Patient Position: Lying) Pulse 67 Temp 98.5 F (36.9 C) (Oral) Resp 15 Ht 5' 10 Wt 83.9 kg (185 lb) Comment: pt states he cannot stand SpO2 95% BMI 26.54 kg/m Temp: [98.1 F (36.7 C)-99.9 F (37.7 C)] 98.5 F (36.9 C) Heart Rate: [65-94] 67 Resp: [14-16] 15 BP: (121-161)/(50-82) 125/73 Wt Readings from Last 1 Encounters: 12/25/18 83.9 kg (185 lb) General: alert, no acute distress, sitting up in bed Head/Neck: normocephalic, hearing normal, face symmetrical Eyes: EOMI with no dizziness noted or pain Cardiac: extremities warm and well perfused, no peripheral edema Resp: normal respiratory effort, no accessory muscle use Neuro: A&Ox4, unable to tell me some details of hospital course,CN's II-XII grossly intact, speech normal, motor strength: RUE - 5/5 SAB, 5/5 EF, 5/5 EE, 5/5 WE, 5/5 FF, 5/5 Driller Portable LUE - 5/5 SAB, 5/5 EF, 5/5 EE, 5/5 WE, 5/5 FF, 5/5 Driller Portable RLE - 5/5 HF, 5/5 KE, 5/5 KF, 5/5 ADF, 5/5 APF, 5/5 EHL LLE - 5/5 HF, 5/5 KE, 5/5 KF, 5/5 ADF, 5/5 APF, 5/5 EHL Hip adduction/abduction5/5 bilatarally sensation intact to light touch throughout, reflexes 2+ and symmetric throughout, muscle tone and bulk normal, unable to stand with heel to toe tandem stance, unable to maintain one foot balance on either left or right over 2 seconds, unsteadiness with eyes closed and standing, able to stand independently from sitting position MSK: normal ROM in extremities without pain, no long bone deformities, no cervical neck tenderness, full range of motion of lateral head movement with no pain Skin: normal turgor, no rashes noted Laboratory Data Acquired/Reviewed (12/26/18 11:17 AM): Labs, Rad, Card, Medications, Transcriptions, Micro, Outside Records, Family Results from last 7 days Lab Units 12/26/18 0643 12/25/18 1335 SODIUM mmol/L 135 136 POTASSIUM mmol/L 4.0 4.8 CHLORIDE mmol/L 98 93* BUN mg/dL 13 12 CREATININE mg/dL 0.80 0.88 GLUCOSE mg/dL 224* 266* Results from last 7 days Lab Units 12/25/18 1335 WBC K/mcL 5.49 HGB g/dL 15.8 HCT % 47.7 MCV fL 89.8 PLT K/mcL 220 Results from last 7 days Lab Units 12/26/18 0643 12/25/18 1335 CALCIUM mg/dL 8.0* 9.3 Results from last 7 days Lab Units 12/25/18 1335 INR 1.0 PROTIME seconds 12.8 Diagnostic Studies I have reviewed the patient's relevant imaging. CT Angiogram Head Neck Final Result 1. 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 2. No evidence of carotid bifurcation stenosis. 3. Normal examination vertebrobasilar circulation. 4. Likely infundibulum supraclinoid carotid artery to the right of midline measuring 2 mm in diameter. JGW/cdr Workstation ID: [id number] MR Brain Without Contrast Final Result No acute infarct, mass effect, or midline shift. Mild diffuse brain parenchymal atrophy, with disproportionate ventriculomegaly, grossly unchanged. An underlying component of communicating hydrocephalus cannot be excluded. Workstation ID: [id number] Signed: Violeta Topete , PGY-4 Physical Medicine & Rehabilitation 12/26/2018, 11:17 AM Associated attestation - Taina Hernandez MD - 12/26/2018 1:23 PM EST I have seen and examined the patient independently or with the resident after detailed discussion of the patient's case and history prior to the encounter and agree with the findings. Discussion: He developed some delayed symptoms from his head injury and currently has poor balance, headaches, short term memory deficits and sensitivity to light and sound. 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 His and daughter are present for education. I educate on avoiding high stimulating environments (jainism, restaurant, department or grocery stores) and not to return to work until January 08 as of now. If he improves he can resume activities. If he is still symptomatic I instructed his family to contact myself for an appointment to help with gradual return to work and management of post concussive symptoms. Impression: Mild TBI, gait disturbance, cognitive deficits, post concussive syndome Recommendation: When the patient is medically ready recommend discharge to home, off work until January 08, contact me if still symptomatic. My contact information is given to them. My office number is [phone]. Associated Order(s): IP CONSULT TO NEUROLOGY Neurology Inpatient Consult [facility] 12/26/2018 Rm Chacko MD [facility] Patient: Rodrigo Henley Date of : 1950 (68 y.o.) Referring Provider: Refer to consult order in electronic medical record PCP: Juanpablo Brito MD ASSESSMENT: 68 y.o. male with history of DM presented to [facility] on 12/25/2018 with headache and gait instability, following a concussive injury. Neurologic exam non-focal. I do not appreciate convergence insufficiency. MRI brain negative for an acute process. I suspect him to have post-concussive symptoms. PLAN: Post-concussive symptoms PMR consult Amitriptyline 25 mg qhs started by primary Abortive of Depakote 500 mg, Ketorolac 15 mg and Ondansetron 4 mg IV q8 hours x 3 doses Otherwise, supportive care for the time being Fall precautions Eventual Outpatient Follow-up: To be determined Answered questions and rediscussed plan at length with Patient, . Covering neurologist: Dr. Chacko. MR images independently reviewed by me and summarized in Resulted Testing section. 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
--- NOTE | 2024-08-13 23:38 | RAD_ITS ---
STUDY: X-RAY CHEST REASON FOR EXAM: Male, 74 years old patient with fatigue. TECHNIQUE: PA and lateral views of the chest. COMPARISON: October 20, 2016. FINDINGS: Cardiac monitoring leads are present. The lungs are clear and expanded. There is no demonstrated pleural abnormality. Normal size heart. Normal mediastinum and dorothea. Normal visualized pulmonary arteries. Normal visualized aortic arch and descending thoracic aorta. 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 There is elevation of right clavicle probably secondary to chronic acromioclavicular joint separation. There is no demonstrated abnormality of the visualized soft tissue structures of the upper abdomen. RAD/Chest PA and Lateral IMPRESSION: No radiographic evidence of acute cardiopulmonary disease. Electronically Signed: Lita Hernandez MD at 1:14 EDT ,
[2024-08-13] MEDS: 0.9% Normal Saline (1000mL) 1,000 ML 999 ML IV (23:47)
[2024-08-13 23:53] LABS: Red Blood Cells-Urine 0 SEEN /hpf (0-5); White Blood Cells 0 SEEN /hpf (0-5)
[2024-08-13 23:54] VITALS: BP 123/74; PULSE 64; RESP 15; O2SAT 96
[2024-08-13 23:54] LABS: Bacteria 0 SEEN /hpf (None Seen); Color, Urine Yellow (Yellow); Glucose, Dipstick 1000 mg/dl (Normal); Ketone-Dipstick 50 mg/dl (Negative); Leukocyte Esterase-Dipstick Negative /ul (Negative); Mucous, Urine 0 SEEN /hpf (<or=2+); Nitrite-Dipstick Negative (Negative); Occult Blood-Urine 10 /ul (Negative); Protein-Dipstick Negative (Negative); Squamous Epithelial Cells - UA 0 SEEN /hpf (0-5); Urine Bilirubin Dipstick Negative (Negative); Urine Clarity Clear (Clear); Urine Urobilinogen Normal (Normal)
[2024-08-14 00:01] LABS: Basophil# 0.04 X10^3/uL; Basophil% 0.7 % (0-1); Eosinophil# 0.23 X10^3/uL; Eosinophils% 4.1 % (0-5); Hematocrit 47.1 % (40-54); Hemoglobin 15.3 g/dL (13.0-16.5); Lymphocyte % 12.4 % (19-41); Mean Corp Hgb Conc 32.5 g/dL (32-36); Mean Corpuscular Hgb 30.4 pg (27.0-32.0); Mean Corpuscular Volume 93.6 fL (80-94); Mean Platelet Vol. 8.9 fl (6.2-12.0); Monocyte# 0.63 X10^3/uL; Monocyte% 11.2 % (0-10); NRBC Flagged by Analyzer 0 % (0-5); Neutrophil # 3.97 X10^3/uL (2.7-7.7); Neutrophil % 70.2 % (47-70); Platelet Count 168 K/mm3 (150-450); RBC Distribution Width CV 12.7 % (11.6-14.6); RBC Distribution Width SD 43.7 fl (35.1-43.9); Red Blood Count 5.03 M/mm3 (4.6-6.2); White Blood Count 5.7 K/mm3 (4.4-11.0)
[2024-08-14 00:20] LABS: Anion Gap 7 (5-15); BUN 20 mg/dL (7-18); BUN/Creat Ratio 20.1 RATIO (10-20); Calcium,Total 9.1 mg/dL (8.5-10.1); Chloride 100 mmol/L (98-107); EST Glomerular Filtration Rate 78 mL/min (>60); Est Glom Filt Rate - Afr Amer 94 mL/min (>60); Estimated Creatinine Clearance 72.65 ml/min; Glucose 200 mg/dL (74-106); Magnesium 2.4 mg/dL (1.6-2.6); Potassium 4.6 mmol/L (3.5-5.1); Sodium Level 136 mmol/L (136-145)
[2024-08-14 00:32] VITALS: BP 137/72; BP 137/73; BP 150/82; PULSE 66; PULSE 69; PULSE 76
[2024-08-14 01:00] VITALS: BP 145/80; PULSE 74; RESP 15
--- NOTE | 2024-08-14 01:27 | EX.ED.DYSGE1 ---
HPI History of Present Illness Chief Complaint: Fatigue Informant: patient and spouse/S.O. Narrative Narrative: Patient is a 74-year-old male with past medical history of insulin-dependent diabetes and hyperlipidemia. He states over the past 2 to 3 days she has just felt generalized fatigue. He states that earlier today once he stood up he also felt dizzy which she describes as more of an off-balance sensation. He denies fever and states has been no known sick contacts. He denies any headache or change in vision. He states his blood sugars have been running normal around 130. However because he cannot shake it this sensation of extreme fatigue he is concerned about potential infection and comes in for evaluation [facility] Medical History Palpitations Abdominal pain Concussion Abdominal discomfort, generalized Home Medications ?Medication ?Instructions ?Recorded ?Last Taken ?Type aspirin 81 mg tablet,delayed 81 mg PO DAILY 11/07/16 11/08/16 History release (Lo-Dose Aspirin) glimepiride 4 mg tablet 4 mg PO BID 11/07/16 11/07/16 History metformin 500 mg tablet 1,000 mg PO BIDCM 11/07/16 11/07/16 History ibuprofen 600 mg tablet 600 mg PO PRN PRN Pain 12/21/18 Unknown History cholecalciferol (vitamin D3) 50 50 mcg PO DAILY 10/05/22 Unknown History mcg (2,000 unit) capsule pen needle, diabetic 32 gauge x #100 ea 10/05/22 Unknown Rx (BD Ultra-Fine Mely Pen Needle) tadalafil 20 mg tablet 20 mg PO 10/05/22 Unknown History zinc gluconate 50 mg tablet 50 mg PO DAILY 10/05/22 Unknown History flash glucose scanning reader #1 ea 02/13/23 Unknown Rx (FreeStyle [place] 2 [place]) flash glucose sensor (FreeStyle #2 ea 02/13/23 Unknown Rx Carlota 2 Sensor kit) insulin aspart U-100 100 unit/mL 10 unit subcut QACDINNER 02/19/24 Unknown History (3 mL) subcutaneous pen (Novolog FlexPen U-100 Insulin aspart) insulin glargine 100 unit/mL (3 13 unit subcut QHS 02/19/24 Unknown History mL) subcutaneous pen (Basaglar KwikPen U-100 Insulin) atorvastatin 10 mg tablet 10 mg PO DAILY #90 tabs 06/05/24 Unknown Rx empagliflozin 25 mg tablet 25 mg PO DAILY #90 tabs 06/27/24 Unknown Rx (Jardiance) Allergy/AdvReac Type Severity Reaction Status Date / Time Seasonal Allergies: Uncoded Allergy Throat Verified 08/13/24 20:12 congestion Family History Other Cancer Diabetes Social History Smoking Status: Never smoker Smokeless tobacco user: other alcohol intake: current alcohol intake frequency: holidays/special occasions only Alcohol type: wine substance use type: does not use what type of physical activity do you participate in: walking frequency: 5-6 times per week ROS ROS ED Constitutional Constitutional ED: Denies chills or fever(s) Eyes Eyes: Denies blurry vision or change in vision ENT ENT ED: Denies rhinorrhea or sore throat Cardiovascular Cardiovascular: Denies chest pain or palpitations Respiratory/Chest Respiratory/Chest: Denies cough or dyspnea Gastrointestinal Gastrointestinal: Denies abdominal pain, diarrhea, nausea or vomiting Genitourinary Genitourinary ED: Denies dysuria Musculoskeletal Musculoskeletal: Denies myalgias Integumentary Denies rash Neurologic Neurologic: Reports weakness and other Details: Positive dizziness ; Denies headache(s) Hematologic/Lymphatic Hematologic/Lymphatic: Denies easy bleeding or easy bruising EXAM Physical Exam Const Vital Signs: 08/13/24 20:13 08/13/24 22:23 08/13/24 22:32 Temperature 96.6 F L Temperature Source Temporal Pulse Rate 73 68 Pulse Rate [Lying] Pulse Rate [Sitting (for 1 minute prior to obtaining)] Pulse Rate [Standing (for 1 minute prior to obtaining)] Respiratory Rate 18 15 Respiratory Effort Normal Respiratory Pattern Normal Blood Pressure 126/78 H 139/63 H Blood Pressure [Lying] Blood Pressure [Sitting (for 1 minute prior to obtaining)] Blood Pressure [Standing (for 1 minute prior to obtaining)] Blood Pressure Mean 94 88 Blood Pressure Mean [Lying] Blood Pressure Mean [Sitting (for 1 minute prior to obtaining)] Blood Pressure Mean [Standing (for 1 minute prior to obtaining)] Pulse Ox 92 96 Oxygen Delivery Method Room Air 08/13/24 23:54 08/14/24 00:32 08/14/24 01:00 Temperature Temperature Source Pulse Rate 64 74 Pulse Rate [Lying] 69 Pulse Rate [Sitting (for 1 minute prior to obtaining)] 66 Pulse Rate [Standing (for 1 minute prior to obtaining)] 76 Respiratory Rate 15 15 Respiratory Effort Respiratory Pattern Blood Pressure 123/74 H 145/80 H Blood Pressure [Lying] 137/73 H Blood Pressure [Sitting (for 1 minute prior to obtaining)] 150/82 H Blood Pressure [Standing (for 1 minute prior to obtaining)] 137/72 H Blood Pressure Mean 90 101 Blood Pressure Mean [Lying] 94 Blood Pressure Mean [Sitting (for 1 minute prior to obtaining)] 104 Blood Pressure Mean [Standing (for 1 minute prior to obtaining)] 93 Pulse Ox 96 Oxygen Delivery Method Positive well nourished and well developed General Appearance ED: well developed; Negative for pallor HEENT Reports TM's clear HEENT Narrative: Mucous membranes are mildly dry and tacky No tongue or lip swelling no oral lesions no airway edema or compromise No secondary findings in the posterior pharynx to suggest infection Tympanic Membrane ED: Yes TM's clear Eyes PERRL and EOMs intact bilaterally General Eye ED: Negative for pale conjunctiva or scleral icterus Neck supple Neck Narrative: No nuchal rigidity or meningeal signs Resp normal respiratory effort and clear to auscultation bilaterally Resp Narrative: No nasal flaring retractions tachypnea or accessory muscle use Cardio regular rate and regular rhythm Rate: other Other Details: Heart is regular rate and rhythm without murmurs rubs or gallops Radial and carotid pulses are equal and symmetric GI normal to inspection, nondistended, normoactive bowel sounds, non-tender, non-distended and no masses GI Narrative: No voluntary guarding or rigidity or pulsatile mass Auscultation: normoactive bowel sounds Palpation: soft Extremity normal to inspection Neuro oriented x3, CN's II-XII intact bilaterally and no sensory deficits noted Neuro Narrative: GCS of 15 Cranial nerves II through XII are grossly intact without focal neurologic deficit No pronator drift no dysmetria no truncal ataxia NIH stroke scale score of 0 No nystagmus noted Sensorium / Orientation: alert Motor Exam: strength 5/5 throughout Psych mental status grossly normal Skin no rashes or lesions noted Skin Narrative: Skin turgor is slightly increased General Skin Exam: Negative for jaundice or pallor MDM MDM MDM Narrative Medical decision making narrative: Patient presented to the ER with stable vitals but reported overwhelming fatigue sensation. Differential diagnosis is for acute kidney injury versus diabetic complication such as DKA or HHS. There is concern for UTI versus dehydration versus electrolyte abnormality. Secondary to this basic blood work with a urine sample were obtained. Patient has no signs of LEIGHA his white count is normal there is no left shift and electrolytes are normal as well. He has no laboratory findings to suggest DKA as his anion gap is normal and his bicarb is normal as well and his serum osmolality is less than 320 going against HHS. Urine sample showed glucose consistent with history of diabetes but no signs of infection. Orthostatic vitals were obtained as she reported dizziness with standing and are technically positive as his diastolic blood pressure dropped 10 points from sitting to standing. After receiving a liter of fluid he did report feeling better. At this time his neurologic exam is normal his workup reveals no signs of acute infection or clinically significant lab abnormality. Therefore there is no need for further evaluation in the hospital and he is otherwise safe for discharge History & Record Review Discussion w/independent historian: Patient and Significant other Lab Data Attestation: I reviewed the patient's lab results. Labs: Laboratory Results - last 24 hr 08/13/24 08/13/24 22:30 23:49 WBC 5.7 RBC 5.03 Hgb 15.3 Hct 47.1 MCV 93.6 MCH 30.4 MCHC 32.5 RDW Std Deviation 43.7 RDW Coeff of Amanda 12.7 Plt Count 168 MPV 8.9 Immature Gran % (Auto) 1.400 H Neut % (Auto) 70.2 H Lymph % (Auto) 12.4 L Lipscomb % (Auto) 11.2 H Eos % (Auto) 4.1 Baso % (Auto) 0.7 Absolute Neuts (auto) 4.0 Absolute Lymphs (auto) 0.70 L Nucleated RBC % 0 Sodium 136 Potassium 4.6 Chloride 100 Carbon Dioxide 29.0 Anion Gap 7 BUN 20 H Creatinine 1.00 Estim Creat Clear Calc 72.65 Est GFR (MDRD) Af Amer 94 Est GFR (MDRD) Non-Af 78 BUN/Creatinine Ratio 20.1 H Glucose 200 H Calcium 9.1 Magnesium 2.4 TSH 4.540 H Urine Color Yellow Urine Clarity Clear Urine pH 5.0 Ur Specific [place] 1.020 Urine Protein Negative Urine Glucose (UA) 1000 H Urine Ketones 50 H Urine Occult Blood 10 H Urine Nitrite Negative Urine Bilirubin Negative Urine Urobilinogen Normal Ur Leukocyte Esterase Negative Urine RBC 0 SEEN Urine WBC 0 SEEN Ur Squamous Epith Cells 0 SEEN Urine Bacteria 0 SEEN Urine Mucus 0 SEEN Radiography Diagnostic Testing: Clinical Impression(s) from Imaging Studies Chest X-Ray 08/13/24 23:38 IMPRESSION: No radiographic evidence of acute cardiopulmonary disease. Electronically Signed: Lita Hernandez MD at 1:14 EDT Reading Location ID and State: [facility] / [place] , Service support , Chest x-ray as interpreted by the emergency medicine physician reveals no acute infiltrate pneumothorax or pleural effusion Discharge Plan Triage Chief Complaint: Fatigue ED Provider: Asa Nino Dx/Rx/DC Orders Clinical Impression: Viral syndrome, Mild dehydration, Insulin dependent diabetes mellitus, Hyperlipidemia Instructions: Dehydration, ED Viral Syndrome (Adult) Prescriptions: No Action tadalafil 20 mg tablet 20 mg PO Patient Comments: TAKE 1/2 TO 1 (ONE-HALF TO ONE) TABLET BY MOUTH 30 TO 60 MINUTES BEFORE INTERCOURSE cholecalciferol (vitamin D3) 50 mcg (2,000 unit) capsule 50 mcg PO DAILY zinc gluconate 50 mg tablet 50 mg PO DAILY (DME) pen needle, diabetic [BD Ultra-Fine Mely Pen Needle] 32 gauge x 5/32 needle See Rx Instructions .Route Qty: 100 1RF Rx Instructions: daily (DME) FreeStyle [place] 2 [place] Misc See Rx Instructions .Route Qty: 1 0RF Rx Instructions: As directed (DME) FreeStyle [place] 2 Sensor Kit See Rx Instructions .Route Qty: 2 5RF Rx Instructions: 1 sensor q 14 days insulin aspart U-100 [Novolog FlexPen U-100 Insulin] 100 unit/mL (3 mL) insulin pen 10 unit subcut QACDINNER insulin glargine [Basaglar KwikPen U-100 Insulin] 100 unit/mL (3 mL) insulin pen 13 unit subcut QHS metformin 500 MG tablet 1,000 mg PO BIDCM aspirin [Lo-Dose Aspirin] 81 MG tablet,delayed release (DR/EC) 81 mg PO DAILY glimepiride 4 MG tablet 4 mg PO BID ibuprofen 600 MG tablet 600 mg PO PRN PRN (Reason: Pain) atorvastatin 10 mg tablet 10 mg PO DAILY Qty: 90 1RF Jardiance 25 mg tablet 25 mg PO DAILY Qty: 90 1RF Primary Care Provider: Harini Qureshi Referrals: Harini Qureshi, [employer] [Primary Care Provider] - Print Language: [place] Disposition Disposition: Home, Self Care Discharge Date/Time: 08/14/24 01:36
[2024-08-14 01:35] VITALS: BP 124/75; PULSE 67; RESP 16; TEMP 36.6; O2SAT 100
== END 2024-08-14 01:36 | disposition home or self-care (01) ==
PROVIDERS: Emergency Provider Emergency Medicine; PCP Nurse Practitioner Family; Visit Provider Emergency Medicine
DX: B34.9 Viral infection, unspecified (principal); E11.9 Type 2 diabetes mellitus without complications; Z79.4 Long term (current) use of insulin; E86.0 Dehydration; R53.83 Other fatigue; E78.5 Hyperlipidemia, unspecified; Z79.82 Long term (current) use of aspirin; Z79.84 Long term (current) use of oral hypoglycemic drugs; Z79.899 Other long term (current) drug therapy
CPT/HCPCS: 71046; 80048; 81001; 83735; 84443; 85025; 87631; 96360; 99285; J7030; A4216

== ENCOUNTER → 2024-08-15 | Outpatient (CLI) | payer MEDICARE, OTHER, SELFPAY ==
--- NOTE | 2024-08-15 10:59 | CT_ITS ---
EXAM: CT MAXILLOFACIAL WITH INTRAVENOUS CONTRAST CLINICAL INDICATION: R LOWER JAW ABSCESS TECHNIQUE: Helically acquired images were obtained of the face with intravenous contrast. This CT exam was performed using one or more of the following dose reduction techniques: automated exposure control, adjustment of the mA and/or kV according to patient size, and/or use of iterative reconstruction technique. CONTRAST: IV 100mL Isovue-300 COMPARISON: No relevant prior studies available. FINDINGS: BONES/JOINTS: No acute facial or orbital fracture. SOFT TISSUES: Soft tissues at the level of the mandible not well seen due to significant beam hardening artifacts related to dental fillings. No evidence of soft tissue abscess or cellulitis. ORBITS: Normal. Both globes are unremarkable. Extraocular muscles are normal. Retrobulbar fat appears unremarkable. SINUSES: Unremarkable as visualized. No acute sinusitis. MASTOID AIR CELLS: Unremarkable as visualized. Clear. CT/Sinus/Facial Bone IMPRESSION: No acute findings in the face. Electronically Signed: Raul Jack MD at 11:34 EDT ,
== END | disposition home or self-care (01) ==
PROVIDERS: PCP Nurse Practitioner Family; Referring Provider Family Medicine; Visit Provider Family Medicine
DX: M27.2 Inflammatory conditions of jaws (principal)
CPT/HCPCS: 70486; Q9967

== ENCOUNTER → 2024-08-15 | Outpatient (CLI) | payer MEDICARE, OTHER, SELFPAY ==
[2024-08-15 12:02] LABS: Erythrocyte Sedimentation Rate 2 mm/hr (0-20)
[2024-08-15 12:04] LABS: Basophil# 0.04 X10^3/uL; Basophil% 0.7 % (0-1); Eosinophil# 0.16 X10^3/uL; Hematocrit 47.9 % (40-54); Hemoglobin 15.6 g/dL (13.0-16.5); Lymphocyte % 13.1 % (19-41); Mean Corp Hgb Conc 32.6 g/dL (32-36); Mean Corpuscular Hgb 30.2 pg (27.0-32.0); Mean Corpuscular Volume 92.8 fL (80-94); Monocyte# 0.48 X10^3/uL; NRBC Flagged by Analyzer 0 % (0-5); Neutrophil # 3.95 X10^3/uL (2.7-7.7); Neutrophil % 73.8 % (47-70); Platelet Count 167 K/mm3 (150-450); RBC Distribution Width CV 12.5 % (11.6-14.6); RBC Distribution Width SD 42.7 fl (35.1-43.9); Red Blood Count 5.16 M/mm3 (4.6-6.2); White Blood Count 5.4 K/mm3 (4.4-11.0)
[2024-08-15 13:18] LABS: ALB/GLOB Ratio 1.2 RATIO (0.9-2.4); AST(SGOT) 15 U/L (15-37); Alanine Aminotransfer ALT/SGPT 19 U/L (16-61); Albumin, Serum 3.9 g/dL (3.2-5.0); Alkaline Phosphatase 67 U/L (45-117); Anion Gap 6 (5-15); BUN 15 mg/dL (7-18); BUN/Creat Ratio 15.6 RATIO (10-20); CRP < 2.90 mg/L (0.0-3.0); Calcium,Total 9.1 mg/dL (8.5-10.1); Chloride 100 mmol/L (98-107); Creatinine, Serum 0.96 mg/dL (0.70-1.30); EST Glomerular Filtration Rate 81 mL/min (>60); Est Glom Filt Rate - Afr Amer 98 mL/min (>60); Globulin 3.3 g/dL (2.2-4.2); Glucose 213 mg/dL (74-106); Potassium 5.1 mmol/L (3.5-5.1); Protein, Total 7.2 g/dL (6.4-8.2); Sodium Level 135 mmol/L (136-145)
== END | disposition home or self-care (01) ==
LOC: BFHLAB 10:18
PROVIDERS: PCP Family Medicine; Referring Provider Family Medicine; Visit Provider Family Medicine
DX: M79.10 Myalgia, unspecified site (principal); B97.89 Other viral agents as the cause of diseases classified elsewhere
CPT/HCPCS: 36415; 80053; 85025; 85652; 86140

== ENCOUNTER → 2024-08-20 | Outpatient (CLI) | payer MEDICARE, OTHER, SELFPAY ==
[2024-08-27 15:08] LABS: Lyme IgG P18 Ab Absent (.); Lyme IgG P23 Ab Absent (.); Lyme IgG P28 Ab Absent (.); Lyme IgG P30 Ab Absent (.); Lyme IgG P39 Ab Absent (.); Lyme IgG P41 Ab Present (.); Lyme IgG P45 Ab Absent (.); Lyme IgG P58 Ab Absent (.); Lyme IgG P66 Ab Absent (.); Lyme IgG P93 Ab Absent (.); Lyme IgG WB Interpretation Negative (.); Lyme IgM P23 Ab Absent (.); Lyme IgM P39 Ab Absent (.); Lyme IgM P41 Ab Absent (.); Lyme IgM WB Interpretation Negative (.)
== END | disposition home or self-care (01) ==
LOC: LAB 14:58
PROVIDERS: PCP Nurse Practitioner Family; Referring Provider Nurse Practitioner Family; Visit Provider Nurse Practitioner Family
DX: M79.10 Myalgia, unspecified site (principal); B97.89 Other viral agents as the cause of diseases classified elsewhere
CPT/HCPCS: 36415; 86617

== ENCOUNTER → 2024-09-24 | Outpatient (CLI) | payer MEDICARE, OTHER, SELFPAY | END | disposition home or self-care (01) | PROVIDERS: PCP Family Medicine; Referring Provider Family Medicine; Visit Provider Family Medicine | DX: G47.33 Obstructive sleep apnea (adult) (pediatric) (principal) | CPT/HCPCS: 95810 ==

== ENCOUNTER → 2024-12-18 | Outpatient (CLI) | payer MEDICARE, SELFPAY ==
--- NOTE | 2024-12-18 09:52 | US_ITS ---
PROCEDURE: ULTRASOUND ABDOMEN LIMITED REASON FOR EXAM: RIGHT UPPER QUADRANT PAIN COMPARISON: ULTRASOUND ABDOMEN DATED 01/29/2022 FINDINGS: Liver: Grossly normal size and echotexture. 15.4 cm sagittally. Blood flow: Hepatopetal. Gallbladder: No stones, sludge, wall thickening or tenderness. Common bile duct: Normal measuring 0.45 cm. Pancreas: Visualized portions are sonographically unremarkable. Right kidney: 11.6 x 6.1 x 4.5 cm. Renal cortex measures 1.3 cm. US/Abdomen Limited IMPRESSION: NORMAL RIGHT UPPER QUADRANT ULTRASOUND. Reading Location: [place] [id number]
== END | disposition home or self-care (01) ==
PROVIDERS: PCP Family Medicine; Referring Provider Family Medicine; Visit Provider Family Medicine
DX: R10.11 Right upper quadrant pain (principal)
CPT/HCPCS: 76705

== ENCOUNTER → 2025-02-17 | Outpatient (CLI) | payer MEDICARE, SELFPAY ==
[2025-02-17 11:25] LABS: Microalbumin,Random Urine < 12.0 mg/L (NO RANGE EST.); Microalbumin:Creatinine Ratio UNABLE TO CALCULATE mg/g CRE
[2025-02-17 11:50] LABS: ALB/GLOB Ratio 1.6 RATIO (0.9-2.4); AST(SGOT) 19 U/L (<=37); Alanine Aminotransfer ALT/SGPT 13 U/L (<=46); Alkaline Phosphatase 63 U/L (40-129); Anion Gap 11 (5-15); BUN 18 mg/dL (4-19); Calcium,Total 8.9 mg/dL (7.6-11.0); Chloride 104 mmol/L (98-108); Cholesterol 106 mg/dL (<=200); Creatinine, Serum 0.83 mg/dL (0.70-1.20); EST Glomerular Filtration Rate 92 (>60); Globulin 2.5 g/dL (2.2-4.2); Glucose 127 mg/dL (70-99); High Density Lipoprotein 57 mg/dL; Low Density Lipoprotein Calc. 39 mg/dL; Potassium 4.2 mmol/L (3.3-5.1); Protein, Total 6.4 g/dL (5.9-8.4); Sodium Level 140 mmol/L (133-145); Triglycerides 53 mg/dL; Very Low Density Lipoprotein 11 mg/dL (5-40); Vitamin D,25 Hydroxy 51.1 ng/mL (30-100); cholesterol:hdl ratio screen 1.87
== END | disposition home or self-care (01) ==
LOC: MTLAB 07:07
PROVIDERS: PCP Family Medicine; Referring Provider Nurse Practitioner Family; Visit Provider Nurse Practitioner Family
DX: E11.65 Type 2 diabetes mellitus with hyperglycemia (principal); Z79.4 Long term (current) use of insulin; E55.9 Vitamin D deficiency, unspecified
CPT/HCPCS: 36415; 80053; 80061; 82043; 82306; 82570; 83036; 84443